=== PATIENT | female | born 1950 | race Caucasian/White ===

== ENCOUNTER 2017-05-24 11:26 | Emergency (ER) | payer OTHER, BC ==
[~2017-05-24] VITALS: Ht 160 cm; Wt 63.9 kg
[2017-05-24 11:34] VITALS: TEMP 36.4; Ht 160 cm; Wt 63.9 kg
--- NOTE | 2017-05-24 12:26 | EMERGENCY ROOM VISIT NOTE ---
History Report prepared by Julian: Vicki Snyder Under the Supervision of: Dr. Yony Morales M.D. First contact with patient: 11:50 Chief Complaint: WRIST PAIN Stated Complaint: RT ELBOW PAIN/CAST TOO TIGHT/ [facility] History of Present Illness The patient is a 66 year old female who presents to the Emergency Room with complaints of persistent right wrist pain that began prior to arrival. She currently rates her discomfort as a 5/10 in severity. Per nursing notes, the patient arrives via ALS from [facility]. EMS reports that the patient suffered a CVA Friday which caused her to fall and break her right humerus. Nursing notes report that the patient had a cast placed on her right arm and has been complaining that the cast is too tight. Source of History: patient, EMS, nursing staff Onset: prior to arrival Position: wrist (right) Symptom Intensity: 5/10 Timing: other (persistent) Review of Systems See HPI for pertinent positives & negatives. A total of 10 systems reviewed and were otherwise negative. Past Medical & Surgical Medical Problems: (1) CVA (cerebral vascular accident) Family History No pertinent family history stated. Social History Smoking Status: Former Smoker Marital Status: Housing Status: lives with significant other Occupation Status: retired Current/Historical Medications Scheduled Atorvastatin (Lipitor), 40 MG PO HS Budesonide/Formoterol Fumarate (Symbicort 160/4.5 Inhaler ), 2 PUFFS INH BID Fluticasone Furoate-Vilanterol (Breo Ellipta), 1 PUFF INH DAILY Folic Acid (Folvite), 1 MG PO DAILY Furosemide (Lasix), 40 MG PO BID Metoprolol Tartrate (Lopressor) (Lopressor), 25 MG PO DAILY Omeprazole (Prilosec), 20 MG PO DAILYBB Potassium Chloride (Potassium Chloride ER), 20 MEQ PO DAILY Prednisone (Prednisone), 2 MG PO DAILY Senna/Docusate Sod (Senokot S), 1 TAB PO QDL Tiotropium [place] (Spiriva Handihaler), 1 CAP INH DAILY Scheduled PRN Albuterol Sulfate (Proair Respiclick), 2 PUFFS INH Q4 PRN for SOB/Wheezing Docusate Sodium (Docusate Sodium), 100 MG PO BID PRN for Constipation Tramadol (Ultram), 50 MG PO Q4H PRN for Pain Zolpidem Tartrate (Zolpidem Tartrate), 5 MG PO HS PRN for Sleep Allergies Coded Allergies: Oxycodone (Unverified Allergy, Unknown, UNKNOWN, 05/24/17) Physical Exam Vital Signs Date Time Temp Pulse Resp B/P (MAP) Pulse Ox O2 Delivery O2 Flow Rate FiO2 05/24/17 12:58 84 16 155/98 94 05/24/17 11:34 36.4 77 19 161/87 93 Room Air Physical Exam GENERAL: Patient is a healthy-appearing well-nourished female HEAD: Normocephalic atraumatic EYES: Ocular movements intact pupils equal and react to light OROPHARYNX mucous membranes are moist no exudates present no erythema or edema present NECK: Supple no nuchal rigidity CHEST: Good equal expansion LUNGS: Clear and equal to auscultation CARDIAC: Normal S1 and S2 ABDOMEN: Soft nontender no guarding BACK: No CVA tenderness EXTREMITIES: The patient is neurovascularly intact with a cast that goes up past the elbow the length of her right forearm. No pain upon palpation normal muscle strength in all groups no clubbing cyanosis or edema NEURO: Patient is following commands and answering questions appropriately. Alert and oriented x3 Cranial Nerves 2-12 grossly intact Medical Decision & Procedures ED Course 1152: Past medical records reviewed. The patient was evaluated in room C9. A complete history and physical examination was performed. 1215: Per nursing staff, the patient had her cast removed and is feeling much better. 1220: I reevaluated the patient and she is doing well. I discussed all the exam findings and I discussed the treatment plan. She verbalized complete understanding and agreement. She is ready for discharge. Medical Decision Differential diagnosis: Etiologies such as fracture, dislocation, neurovascular compromise, compartment syndrome, soft tissue injury, as well as others were entertained. This is a 66-year-old female who presents emergency Department with a cast that she is complaining is too tight. Upon arrival to the emergency department the cast was immediately cut and the patient had much improvement in her symptoms. After cutting the cast the patient has no evidence of compartment syndrome and I feel can be safely discharged back to her group home. I stressed the need for follow-up with the patient's orthopedic surgeon. Patient was in agreement with treatment plan. Medication Reconcilliation Current Medication List: was personally reviewed by me Blood Pressure Screening Patient's blood pressure: Elevated blood pressure Blood pressure disposition: Referred to PCP Impression Primary Impression: Visit for cast removal Scribe Attestation The scribe's documentation has been prepared under my direction and personally reviewed by me in its entirety. I confirm that the note above accurately reflects all work, treatment, procedures, and medical decision making performed by me. Departure Information Dispostion Home / Self-Care [facility] HOME CARE DOCUMENTATION FORM, IMPORTANT VISIT INFORMATION, WORK / SCHOOL INSTRUCTIONS Patient Instructions My [facility] Additional Instructions Be aware of risk of compartment syndrome NEED follow up with [facility] Friday You were found to have an elevated blood pressure today (>120 sytolic or >90 diastolic). Per medicare guidelines, you need to follow up with this blood pressure screening with your Primary Care Physician (PCP). For a new PCP call [phone]. You have been examined and treated today on an emergency basis only. This is not a substitute for, or an effort to provide, complete comprehensive medical care. It is impossible to recognize and treat all injuries or illnesses in a single emergency department visit. It is therefore important that you follow up closely with [facility]. Call as soon as possible for an appointment. Thank you for your time and consideration. I look forward to speaking with you again soon. Please don't hesitate to call us if you have any questions.
[2017-05-24] MEDS ORDERED: ZOLP5TAB6 PO (12:28)
[2017-05-24] MEDS ORDERED: FOLI1TAB7 PO (12:28)
[2017-05-24] MEDS ORDERED: [UNRECOGNIZED DRUG - CODE] PO (12:28)
[2017-05-24] MEDS ORDERED: ATOR-24 PO (12:28)
[2017-05-24] MEDS ORDERED: FRS/40 PO (12:28)
[2017-05-24] MEDS ORDERED: METO25TA56 PO (12:28)
[2017-05-24] MEDS ORDERED: PRLSR20 PO (12:28)
[2017-05-24] MEDS ORDERED: DOCU100C31 PO (12:28)
[2017-05-24] MEDS ORDERED: POTA-65 PO (12:28)
[2017-05-24] MEDS ORDERED: TRAM-10 PO (12:28)
[2017-05-24] MEDS ORDERED: SENN-65 PO (12:28)
[2017-05-24] MEDS ORDERED: SPRIN/30 INH (12:28)
[2017-05-24] MEDS ORDERED: SYMIN160 INH (12:28)
[2017-05-24] MEDS ORDERED: FLUT1INH INH (12:28)
[2017-05-24] MEDS ORDERED: ALBU18002 INH (12:28)
[2017-05-24 12:58] VITALS: BP 155/98; PULSE 84; O2SAT 94
== END 2017-05-24 12:59 | disposition home or self-care (01) ==
LOC: EDBD 11:26 → C.EDC 11:27
DX: Z47.89 Encounter for other orthopedic aftercare (principal); Z87.81 Personal history of (healed) traumatic fracture; Z86.73 Personal history of transient ischemic attack (TIA), and cerebral infarction without residual deficits; Z87.891 Personal history of nicotine dependence; Z79.52 Long term (current) use of systemic steroids; Z79.899 Other long term (current) drug therapy